=== PATIENT | female | born 1990 | race Caucasian/White ===

== ENCOUNTER 2022-03-08 15:43 | Emergency (ER) | payer OTHER ==
[2022-03-08 18:12] LABS: BASOPHIL 0.2 % (0-2); EOSINOPHIL 0.2 % (0-5); HGB 10.6 g/dl (12.5-16.0); LYMPHOCYTE 12.7 % (15-48); MCH 27.2 pg (25.0-31.0); MCHC 32.1 g/dL (32.0-36.0); MCV 84.6 fL (78.0-100.0); MONOCYTE 7.8 % (0-12); MPV 11.5 fL (6.0-9.5); NEUTROPHIL 78.9 % (41-80); NRBC 0; PLT 247 K/uL (150-400); RDW 13.8 % (11.5-14.0); WBC 8.1 K/uL (4.0-10.5)
[2022-03-08 18:28] LABS: BUN/CREAT RATIO (CALC) 28.8 RATIO; CREATININE 0.59 mg/dL (0.51-0.95); POTASSIUM 3.7 mmol/L (3.5-5.1)
[2022-03-08 19:19] LABS: BILIRUBIN NEGATIVE (NEGATIVE); BLOOD TRACE-INTACT Ery/uL (NEGATIVE); CLARITY CLEAR (CLEAR); COLOR YELLOW (YELLOW); GLUCOSE (U) NORMAL (NORMAL); LEUKOCYTES NEGATIVE Leu/uL (NEGATIVE); NITRITE POSITIVE (NEGATIVE); PROTEIN NEGATIVE (NEGATIVE); SPECIFIC GRAVITY 1.025 (1.001-1.030); UROBILINOGEN 0.2 mg/dL (0.2-1.0)
[2022-03-08 19:57] LABS: BACTERIA 1+; MUCOUS TRACE; URINARY WBC RARE
[2022-03-08] MEDS ORDERED: NORCO 5-325 TA1 EACH PO (21:16)
[2022-03-08] MEDS ORDERED: PYRIDIUM100 MG PO (21:16)
[2022-03-08] MEDS ORDERED: NYSTATIN 30GM C30 GM TOP (21:16)
[2022-03-08] MEDS ORDERED: DIFLUCAN150 MG PO (21:16)
[2022-03-08] MEDS ORDERED: VIBRAMYCIN100 MG PO (21:16)
[2022-03-08] MEDS ORDERED: ONDANSETRON HCL4 MG PO (21:16)
[2022-03-12 16:09] LABS: CHLAMYDIA TRACHOMATIS, NAA Negative (Negative); NEISSERIA GONORRHOEAE, NAA Negative (Negative)
== END 2022-03-08 22:25 | disposition home or self-care (01) ==
LOC: FER 15:43
PROVIDERS: Nurse Practitioner Family
DX: B37.3 Candidiasis of vulva and vagina (principal); N39.0 Urinary tract infection, site not specified; R33.9 Retention of urine, unspecified; R11.0 Nausea
CPT/HCPCS: 36415; 80048; 81001; 85025; 87088; 87491; 87591; 96365; 96372; 96375; J0696; J1170; J1885; J2405; J7030

== ENCOUNTER 2022-03-11 16:39 | Emergency (ER) | payer OTHER ==
[~2022-03-11 16:39] MED LIST: DIFLUCAN150 MG PO; NORCO 5-325 TA1 EACH PO; NYSTATIN 30GM C30 GM TOP; ONDANSETRON HCL4 MG PO; PYRIDIUM100 MG PO; VIBRAMYCIN100 MG PO
[2022-03-11 19:42] LABS: BASOPHIL 0.4 % (0-2); HCT 34.4 % (37.0-47.0); HGB 10.9 g/dl (12.5-16.0); LYMPHOCYTE 21.9 % (15-48); MCH 26.5 pg (25.0-31.0); MCHC 31.7 g/dL (32.0-36.0); MCV 83.7 fL (78.0-100.0); MONOCYTE 9.7 % (0-12); MPV 11.7 fL (6.0-9.5); NEUTROPHIL 66.6 % (41-80); NRBC 0; PLT 261 K/uL (150-400); RBC 4.11 M/uL (4.20-5.40); RDW 13.2 % (11.5-14.0); WBC 5.3 K/uL (4.0-10.5)
[2022-03-11 19:59] LABS: BUN/CREAT RATIO (CALC) 18.3 RATIO; CREATININE 0.71 mg/dL (0.51-0.95); POTASSIUM 3.8 mmol/L (3.5-5.1)
[2022-03-11] MEDS ORDERED: PERCOCET 5-3251 EACH PO (21:13)
== END 2022-03-11 21:50 | disposition home or self-care (01) ==
LOC: FER 16:39
PROVIDERS: Nurse Practitioner Family
DX: B37.3 Candidiasis of vulva and vagina (principal); N39.0 Urinary tract infection, site not specified
CPT/HCPCS: 36415; 80048; 85025; J1170; J7030; Q0162